=== PATIENT | female | born 1940 | race Caucasian/White ===

== ENCOUNTER 2023-03-28 09:38 | Outpatient (CLI) | payer MEDICARE | END 2023-03-28 09:39 | disposition home or self-care (01) | LOC: MRI 09:38 | PROVIDERS: ATTEND Family Medicine | DX: R41.3 Other amnesia (principal); I62.9 Nontraumatic intracranial hemorrhage, unspecified; G31.89 Other specified degenerative diseases of nervous system; G93.89 Other specified disorders of brain | CPT/HCPCS: 70551 ==